=== PATIENT | male | born 1960 | race Caucasian/White ===

== ENCOUNTER 2021-08-03 11:08 | Emergency (ER) | payer BC ==
[2021-08-03] MEDS ORDERED: Cyclobenzaprine 10 MG Tab PO ONE (11:26)
[2021-08-03] MEDS ORDERED: Ketorolac 30 MG/ML SDV IM ONE (11:26)
== END 2021-08-03 11:44 | disposition home or self-care (01) ==
LOC: MW.ED 11:08
DX: M54.41 Lumbago with sciatica, right side (principal); R03.0 Elevated blood-pressure reading, without diagnosis of hypertension
CPT/HCPCS: 96372; 99283; A9270; J1885

== ENCOUNTER 2022-07-03 17:09 | Emergency (ER) | payer BC ==
[2022-07-03 19:27] LABS: CARBON DIOXIDE,CO2 31.7 mmol/L (21.0-32.0); POTASSIUM,K 4.3 mmol/L (3.5-5.1)
== END 2022-07-03 20:35 | disposition home or self-care (01) ==
LOC: MW.ED 17:09
DX: M25.462 Effusion, left knee (principal); M25.562 Pain in left knee; Z79.899 Other long term (current) drug therapy
CPT/HCPCS: 36415; 73562-26-LT; 73562-LT; 80053; 85025; 93971-26-LT; 93971-LT; 99283; 99284

== ENCOUNTER 2023-01-09 20:14 | Emergency (ER) | payer BC ==
[2023-01-09] MEDS ORDERED: Diphtheria,Pertussis(Acell),Tetanus Vaccine 0.5 ML Syringe IM ONE (21:11)
[2023-01-09] MEDS ORDERED: Lidocaine 1% 5 ML VIAL INJECT ONE (21:11)
== END 2023-01-09 22:26 | disposition home or self-care (01) ==
LOC: MW.ED 20:14
DX: S61.211A Laceration without foreign body of left index finger without damage to nail, initial encounter (principal); Z23 Encounter for immunization; W26.8XXA Contact with other sharp object(s), not elsewhere classified, initial encounter
CPT/HCPCS: 12002; 90471; 90715; 99282-25; 99283; J3490